=== PATIENT | male | born 2000 | race Caucasian/White ===

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

== ENCOUNTER → 2019-01-09 | Outpatient (REF) | payer OTHER | LOC: M SFHCLERA 14:21 | PROVIDERS: ATTEND Nurse Practitioner Family | DX: J02.9 Acute pharyngitis, unspecified (principal) ==

== ENCOUNTER → 2019-04-24 | Outpatient (CLI) | payer OTHER ==
[2019-04-24 11:40] LABS: HEMATOCRIT 54.2 % (42.0-52.0); HEMOGLOBIN 19.1 g/dl (13.5-17.5); MEAN CORPUSCULAR HEMOGLOBIN 30.8 pg (27.0-33.0); MEAN CORPUSCULAR HGB CONC 35.2 g/dl (32.0-36.5); MEAN CORPUSCULAR VOLUME 87.3 fl (80.0-96.0); PLATELET COUNT, AUTOMATED 283 10^3/uL (150-450); RED BLOOD COUNT 6.21 10^6/uL (4.30-6.10); WHITE BLOOD COUNT 5.1 10^3/uL (4.0-10.0)
[2019-04-24 12:10] LABS: HEMOGLOBIN A1c 10.6 %
[2019-04-24 12:30] LABS: ALBUMIN 4.7 GM/DL (3.2-5.2); ALT/SGPT 28 U/L (12-78); BILIRUBIN,TOTAL 0.9 MG/DL (0.2-1.0); BLOOD UREA NITROGEN 14 MG/DL (7-18); CALCIUM LEVEL 9.8 MG/DL (8.5-10.1); CARBON DIOXIDE LEVEL 33 MEQ/L (21-32); CHLORIDE LEVEL 101 MEQ/L (98-107); CHOLESTEROL LEVEL 217 MG/DL (<200); CHOLESTEROL RISK RATIO 2.782 (<5); CREATININE FOR GFR 0.91 MG/DL (0.70-1.30); GLUCOSE, FASTING 142 MG/DL (70-100); HDL CHOLESTEROL 78 MG/DL (>40); LDL CHOLESTEROL 119 MG/DL (<100); NON-HDL-C 139 MG/DL; POTASSIUM SERUM 4.2 MEQ/L (3.5-5.1); SODIUM LEVEL 140 MEQ/L (136-145); TOTAL 25(OH) VITAMIN D 16.9 NG/ML (30.0-100.0); TOTAL PROTEIN 8.3 GM/DL (6.4-8.2); TRIGLYCERIDES LEVEL 98 MG/DL (<150)
== END ==
LOC: M LAB 10:49
PROVIDERS: ATTEND Family Medicine
DX: D64.9 Anemia, unspecified (principal); E03.9 Hypothyroidism, unspecified; R53.83 Other fatigue

== ENCOUNTER → 2019-10-02 | Outpatient (REF) | payer OTHER ==
[2019-10-02 16:18] LABS: CREATININE, URINE 95.9 MG/DL; MAU/CREAT RATIO 224.1 MCG/MG (0.0-30.0)
== END ==
LOC: M LAB REF 15:04
PROVIDERS: ATTEND Nurse Practitioner Family
DX: E10.65 Type 1 diabetes mellitus with hyperglycemia (principal)

== ENCOUNTER 2020-11-02 16:23 | Emergency (ER) | payer OTHER ==
[~2020-11-02] VITALS: Ht 170.2 cm; Wt 63.2 kg
[~2020-11-02 16:23] MED LIST changes: -ACETAMINOPHEN TAB 650MG DOSE (2X325MG) PO ONE; -ADME100I; -ALBUTEROL 90 MCG/ACT 8GM HFA INHALER INH PRN; -ALBUTEROL SULFATE 2.5 MG/0.5 ML INH NEB SOLN INH PRN; -BASA100I; -CASIRIVIMAB/IMDEVIMAB 1,200 MG in NS 250 ML IV ONE; -EPINEPHrine INJ 1 MG/ML 1ML AMP IM PRN; -NS 1,000 ML IV SCH; -diphenhydrAMINE 25MG CAP PO ONE; -diphenhydrAMINE 50MG/ML VIAL (J1200) IV PRN; -methylPREDNISolone 125MG 2ML VIAL IV PRN
[2020-11-02] MEDS ORDERED: BASA100I (17:42)
[2020-11-02] MEDS ORDERED: ADME100I (17:42)
[2020-11-02] MEDS ORDERED: NS 1,000 ML IV ONE (18:10)
[2020-11-02 19:42] LABS: VENOUS BASE EXCESS -1.3 (-2.0-2.0); VENOUS HCO3 25.6 MEQ/L (23.0-27.0); VENOUS PARTIAL PRESSURE CO2 50.3 mmHg (38.0-50.0); VENOUS PARTIAL PRESSURE O2 37.8 mmHg (30.0-50.0); VENOUS PH 7.325 UNITS (7.330-7.430); VENOUS STANDARD HCO3 22.6 MEQ/L; VENOUS TOTAL CO2 27.2 MEQ/L (24.0-28.0)
[2020-11-02 19:46] LABS: BASO % 0.4 % (0.0-1.0); HEMATOCRIT 52.7 % (42.0-52.0); HEMOGLOBIN 18.5 g/dl (13.5-17.5); LYMPH # 0.7 10^3/uL (1.5-5.0); LYMPH % 12.3 % (24.0-44.0); MEAN CORPUSCULAR HEMOGLOBIN 30.5 pg (27.0-33.0); MEAN CORPUSCULAR HGB CONC 35.1 g/dl (32.0-36.5); MEAN CORPUSCULAR VOLUME 86.8 fl (80.0-96.0); MONO % 17.4 % (2.0-8.0); NEUTROPHILS # 3.9 10^3/uL (1.5-8.5); NEUTROPHILS % 69.7 % (36.0-66.0); PLATELET COUNT, AUTOMATED 238 10^3/uL (150-450); RED BLOOD COUNT 6.07 10^6/uL (4.30-6.10); WHITE BLOOD COUNT 5.5 10^3/uL (4.0-10.0)
--- NOTE | 2020-11-02 20:03 | ECGEPIP ---
[facility] - ED Test Date: 2020-11-02 Pat Name: ADELE RODRIGUEZ Department: Room: - Gender: Male [employer]: art : 2000 Requested By: TRACEY Mtz PA-C Order Number: [id number] Reading MD: Keira Galarza Measurements Intervals [place] Rate: 78 P: 68 NC: 128 QRS: 65 QRSD: 84 T: 33 QT: 360 QTc: 410 Interpretive Statements Normal sinus rhythm Possible Left atrial enlargement decreased rate 02/15/16 Electronically Signed on 11-02-2020 20:02:55 EDT by Keira Galarza
[2020-11-02 20:12] LABS: HEMOGLOBIN A1c 8.7 %
[2020-11-02 20:17] LABS: ACETONE/KETONE 3.96 MG/DL (<2.81); ALBUMIN 4.5 GM/DL (3.2-5.2); BILIRUBIN,DIRECT 0.1 MG/DL (0.0-0.2); BILIRUBIN,TOTAL 0.7 MG/DL (0.2-1.0); TOTAL PROTEIN 8.1 GM/DL (6.4-8.2)
[2020-11-02] MEDS ORDERED: NS 500 ML IV ONE (20:45)
--- NOTE | 2020-11-02 21:48 | REPVR ---
PROCEDURE INFORMATION: Exam: XR Chest Exam date and time: 11/02/2020 8:19 PM Age: 20 years old Clinical indication: Other: Chest pain; Additional info: Covid TECHNIQUE: Imaging protocol: XR of the chest. Views: 1 view. COMPARISON: CT ABD PELVIS WITH CONTRAST 10/08/2014 11:24 PM FINDINGS: Lungs: Vague focus of increased opacity demonstrated in the lateral aspect of the left mid lung zone. Findings may represent an early focus of pneumonitis versus artifact related to the anterior 4th rib. Remaining lungs are clear. Pleural spaces: Unremarkable. No pleural effusion. No pneumothorax. Heart/Mediastinum: Unremarkable. No cardiomegaly. Bones/joints: Unremarkable. IMPRESSION: Vague focus of increased opacity demonstrated in the lateral aspect of the left mid lung zone. Findings may represent an early focus of pneumonitis versus artifact. Electronically signed by: Davon Cobb On 11/02/2020 21:48:24 PM
[2020-11-03 01:02] VITALS: BP 117/55
--- NOTE | 2020-11-04 08:00 | ED PDOC ---
Post-Departure Follow-Up cxr-p faxed to dr harvinder francou Valentin Harrell MD Nov 04, 2020 08:00
== END 2020-11-03 01:39 | disposition home or self-care (01) ==
LOC: M ED 16:23 → M ED INP 16:24 → UNDOADMOB 16:24 → M ICU 11-03 01:35 → M ED INP 11-03 01:35
DX: E10.649 Type 1 diabetes mellitus with hypoglycemia without coma (principal); U07.1 COVID-19

== ENCOUNTER → 2020-11-02 | Outpatient (CLI) | payer OTHER ==
[~2020-11-02] MED LIST changes: +ACETAMINOPHEN TAB 650MG DOSE (2X325MG) PO ONE; +ADME100I; +ALBUTEROL 90 MCG/ACT 8GM HFA INHALER INH PRN; +ALBUTEROL SULFATE 2.5 MG/0.5 ML INH NEB SOLN INH PRN; +BASA100I; +CASIRIVIMAB/IMDEVIMAB 1,200 MG in NS 250 ML IV ONE; +EPINEPHrine INJ 1 MG/ML 1ML AMP IM PRN; +NS 1,000 ML IV SCH; +diphenhydrAMINE 25MG CAP PO ONE; +diphenhydrAMINE 50MG/ML VIAL (J1200) IV PRN; +methylPREDNISolone 125MG 2ML VIAL IV PRN
--- NOTE | 2020-11-02 23:40 | IPNPDOC ---
Text Note Date of Service The patient was seen on 11/02/20. NOTE Outpatient transfusion for COVID+ patient encounter 20M with a PMHx of Type 1 diabetes, he admits to not following a good diet and eats what he wants. Sugars initially elevated but improved with insulin in the ED. He was discharged from the ED and I was asked to see the patient for OP monoclonal antibody administration. Patient is COVID19+ will be receiving Monocolonal antibodies infusion therapy per hospital infusion policy. Patient has been feeling tired at home with a headache some cough and muscle aches for 1 day which prompted him to come to the ER for visit. Patient does not meet criteria to be admitted to the hospital. Patient is saturating well on room air and does not dipped below 92% on ambulation. Patient will receive the infusion and then be discharged to home with OP followup. On exam patient was resting comfortably lungs were clear to auscultation bilaterally with no crackles or wheezing. Regular heart rate. Patient was calm awake and answering all questions appropriately. Is able to speak in full sentences without appearing short of breath. Abdomen was soft and nontender with positive bowel sounds. Dad was with him at bedside, I counseled them both to get vaccinated. Consent was obtained with patient and signed in the chart. Patient advised to r eturn to hospital should his symptoms worsen. SERENE ORDOÑEZ MD Nov 02, 2020 23:40
[2020-11-03] VITALS (7 sets, daily range): BP systolic 110–115; BP diastolic 56–59
== END ==
LOC: M OPCLI4 23:37
PROVIDERS: ATTEND Family Medicine
DX: U07.1 COVID-19 (principal)

== ENCOUNTER → 2021-09-03 | Outpatient (REF) | payer OTHER ==
[~2021-09-03] MED LIST changes: +ADME100I; +BASA100I
[2021-09-03 19:01] LABS: CREATININE, URINE 48.7 MG/DL; MALB URINE SIEMENS 5.7 MG/L; MAU/CREAT RATIO 11.7 MCG/MG (0.0-30.0)
== END ==
LOC: M LAB REF 16:46
PROVIDERS: ATTEND Nurse Practitioner Family
DX: E10.65 Type 1 diabetes mellitus with hyperglycemia (principal)

== ENCOUNTER 2022-02-15 18:56 | Inpatient (IN) | payer OTHER ==
[~2022-02-15] VITALS: Ht 170.2 cm; Wt 60.0 kg
[2022-02-15] MEDS ORDERED: NS 1,780 ML in IV 1 EA IV ONE (20:15)
[2022-02-15] MEDS ORDERED: ONDANSETRON 4MG 2ML VIAL IV ONE (20:15)
[2022-02-15 20:43] LABS: VENOUS BASE EXCESS -10.5 (-2.0-2.0); VENOUS O2 SATURATION 83.4 % (60.0-80.0); VENOUS PARTIAL PRESSURE O2 50.6 mmHg (30.0-50.0); VENOUS PH 7.243 UNITS (7.330-7.430); VENOUS STANDARD HCO3 16.2 MEQ/L; VENOUS TOTAL CO2 17.2 MEQ/L (24.0-28.0)
[2022-02-15 20:49] LABS: BASO % 0.1 % (0.0-1.0); HEMATOCRIT 50.8 % (42.0-52.0); HEMOGLOBIN 17.4 g/dl (13.5-17.5); LYMPH # 0.6 10^3/uL (1.5-5.0); LYMPH % 3.5 % (24.0-44.0); MEAN CORPUSCULAR HEMOGLOBIN 29.8 pg (27.0-33.0); MEAN CORPUSCULAR HGB CONC 34.3 g/dl (32.0-36.5); MEAN CORPUSCULAR VOLUME 87.1 fl (80.0-96.0); MONO # 0.8 10^3/uL (0.0-0.8); MONO % 5.2 % (2.0-8.0); NEUTROPHILS # 14.3 10^3/uL (1.5-8.5); NEUTROPHILS % 90.8 % (36.0-66.0); PLATELET COUNT, AUTOMATED 298 10^3/uL (150-450); RED BLOOD COUNT 5.83 10^6/uL (4.30-6.10); WHITE BLOOD COUNT 15.7 10^3/uL (4.0-10.0)
[2022-02-15 21:00] LABS: HEMOGLOBIN A1c 8.2 % (4.0-6.0)
[2022-02-15 21:11] LABS: OSMOLALITY SERUM 331 MOSM/KG (275-295)
[2022-02-15 21:18] LABS: ALT/SGPT 30 U/L (7.0-40); BILIRUBIN,DIRECT 0.4 MG/DL (<0.4); BILIRUBIN,TOTAL 1.1 MG/DL (0.3-1.2); BLOOD UREA NITROGEN 29 MG/DL (9-23); CALCIUM LEVEL 10.3 MG/DL (8.5-10.1); CARBON DIOXIDE LEVEL 15 MMOL/L (20-31); CHLORIDE LEVEL 93 MMOL/L (98-107); CREATININE FOR GFR 1.12 MG/DL (0.70-1.30); GLOMERULAR FILTRATION RATE > 60.0 (>60); GLUCOSE, FASTING 628 MG/DL (60-100); LIPASE 24 U/L (12-53); MAGNESIUM LEVEL 2.2 MG/DL (1.8-2.4); SODIUM LEVEL 135 MMOL/L (136-145); TOTAL PROTEIN 7.7 G/DL
[2022-02-15] MEDS ORDERED: HumuLIN R (REGULAR) INSULIN (NovoLIN R) **100U/ML** PER UNIT IV ONE (21:30)
[2022-02-15] MEDS ORDERED: INSULIN IV RATE CHANGE DOCUMENTATION ML/HR XX SCH (21:30)
[2022-02-15] MEDS ORDERED: INSULIN REGULAR IN 0.9 % NACL 100 UNIT in IV 1 EA IV SCH ×2 (21:30)
[2022-02-15 21:32] LABS: ACETONE/KETONE > 46.00 MG/DL (<2.81)
[2022-02-15] MEDS ORDERED: BASA100I SC (23:45)
[2022-02-15] MEDS ORDERED: VITA-172 PO (23:45)
[2022-02-15] MEDS ORDERED: HOME MED LIST COMPLETE! XX SCH (23:45)
[2022-02-15] MEDS ORDERED: ADME100I SC (23:45)
[2022-02-16] MEDS ORDERED: INSULIN IV RATE CHANGE DOCUMENTATION ML/HR XX SCH (01:30)
[2022-02-16] MEDS ORDERED: NS 1,000 ML IV SCH (01:30)
[2022-02-16] MEDS ORDERED: INSULIN REGULAR IN 0.9 % NACL 100 UNIT in IV 1 EA IV SCH ×2 (02:00)
[2022-02-16 02:45] VITALS: BP 115/54
[2022-02-16] MEDS ORDERED: NS 0.45% 1,000 ML IV SCH (03:20)
[2022-02-16] MEDS ORDERED: D5W/0.45% SODIUM CHLORIDE 1,000 ML IV SCH (03:30)
[2022-02-16 04:40] LABS: BLOOD UREA NITROGEN 19 MG/DL (9-23); CALCIUM LEVEL 8.7 MG/DL (8.5-10.1); CARBON DIOXIDE LEVEL 22 MMOL/L (20-31); CHLORIDE LEVEL 107 MMOL/L (98-107); CREATININE FOR GFR 0.89 MG/DL (0.70-1.30); GLOMERULAR FILTRATION RATE > 60.0 (>60); GLUCOSE, FASTING 208 MG/DL (60-100); POTASSIUM SERUM 3.6 MMOL/L (3.5-5.1); SODIUM LEVEL 141 MMOL/L (136-145)
[2022-02-16] MEDS ORDERED: DEXTROSE 50% 50 ML SYRINGE IV PRN (05:00)
[2022-02-16] MEDS ORDERED: GLUCAGON INJ 1MG VIAL SC PRN (05:00)
[2022-02-16] MEDS ORDERED: GLUCOSE 4GM CHEW TABLET PO PRN (05:00)
[2022-02-16] MEDS ORDERED: HEPARIN SOD (PORCINE) 5000UNITS/ML 1ML VIAL/SYRINGE SC SCH (06:00)
[2022-02-16] MEDS ORDERED: LEVEMIR (INSULIN DETEMIR) 1 UNITS/0.01ML SC SCH ×2 (06:00→21:00)
[2022-02-16 07:04] LABS: BLOOD UREA NITROGEN 17 MG/DL (9-23); CALCIUM LEVEL 8.5 MG/DL (8.5-10.1); CARBON DIOXIDE LEVEL 23 MMOL/L (20-31); CHLORIDE LEVEL 107 MMOL/L (98-107); CREATININE FOR GFR 0.83 MG/DL (0.70-1.30); GLOMERULAR FILTRATION RATE > 60.0 (>60); GLUCOSE, FASTING 270 MG/DL (60-100); PHOSPHORUS LEVEL 3.3 MG/DL (2.5-4.9); POTASSIUM SERUM 3.6 MMOL/L (3.5-5.1); SODIUM LEVEL 140 MMOL/L (136-145)
[2022-02-16 08:00] VITALS: BP 105/54
[2022-02-16] MEDS: INSULIN LISPRO (NovoLOG) PER UNIT SC SCH ×4 (08:43→17:33)
[2022-02-16] MEDS ORDERED: INSULIN LISPRO (NovoLOG) PER UNIT SC ONE (09:20)
[2022-02-16 10:40] LABS: BLOOD UREA NITROGEN 23 MG/DL (9-23); CALCIUM LEVEL 8.5 MG/DL (8.5-10.1); CARBON DIOXIDE LEVEL 23 MMOL/L (20-31); CHLORIDE LEVEL 106 MMOL/L (98-107); CREATININE FOR GFR 0.85 MG/DL (0.70-1.30); GLOMERULAR FILTRATION RATE > 60.0 (>60); GLUCOSE, FASTING 314 MG/DL (60-100); POTASSIUM SERUM 3.7 MMOL/L (3.5-5.1); SODIUM LEVEL 139 MMOL/L (136-145)
[2022-02-16] MEDS ORDERED: INSULIN LISPRO (NovoLOG) PER UNIT SC SCH ×2 (11:55→21:00)
[2022-02-16] MEDS ORDERED: POTASSIUM CHLORIDE 10MEQ SR TABLET PO ONE (12:45)
[2022-02-16 14:50] LABS: BLOOD UREA NITROGEN 23 MG/DL (9-23); CALCIUM LEVEL 8.8 MG/DL (8.5-10.1); CARBON DIOXIDE LEVEL 27 MMOL/L (20-31); CHLORIDE LEVEL 106 MMOL/L (98-107); CREATININE FOR GFR 0.78 MG/DL (0.70-1.30); GLOMERULAR FILTRATION RATE > 60.0 (>60); GLUCOSE, FASTING 180 MG/DL (60-100); PHOSPHORUS LEVEL 3.2 MG/DL (2.5-4.9); POTASSIUM SERUM 3.7 MMOL/L (3.5-5.1); SODIUM LEVEL 142 MMOL/L (136-145)
[2022-02-16 15:05] VITALS: BP 106/58
[2022-02-16 21:00] VITALS: BP 108/57
[2022-02-16] MEDS ORDERED: ENOXAPARIN 40MG/0.4ML SYRINGE (J1650 PER 10MG) SC SCH (21:00)
[2022-02-17 05:38] LABS: HEMATOCRIT 43.7 % (42.0-52.0); MEAN CORPUSCULAR HEMOGLOBIN 30.2 pg (27.0-33.0); MEAN CORPUSCULAR HGB CONC 34.8 g/dl (32.0-36.5); MEAN CORPUSCULAR VOLUME 86.9 fl (80.0-96.0); PLATELET COUNT, AUTOMATED 203 10^3/uL (150-450); RED BLOOD COUNT 5.03 10^6/uL (4.30-6.10); WHITE BLOOD COUNT 9.4 10^3/uL (4.0-10.0)
[2022-02-17 05:47] LABS: HEMOGLOBIN 15.2 g/dl (13.5-17.5)
[2022-02-17 06:00] VITALS: BP 109/72
[2022-02-17 07:07] LABS: BLOOD UREA NITROGEN 17 MG/DL (9-23); CALCIUM LEVEL 9.1 MG/DL (8.5-10.1); CARBON DIOXIDE LEVEL 26 MMOL/L (20-31); CHLORIDE LEVEL 107 MMOL/L (98-107); CREATININE FOR GFR 0.75 MG/DL (0.70-1.30); GLOMERULAR FILTRATION RATE > 60.0 (>60); GLUCOSE, FASTING 73 MG/DL (60-100); POTASSIUM SERUM 3.9 MMOL/L (3.5-5.1); SODIUM LEVEL 141 MMOL/L (136-145)
[2022-02-17] MEDS: INSULIN LISPRO (NovoLOG) PER UNIT SC SCH ×3 (07:30→13:13)
[2022-02-17] MEDS ORDERED: BASA100I SC (14:14)
== END 2022-02-17 15:06 | disposition home or self-care (01) | DRG 420 ==
LOC: M ED 18:56 → M ED INP 02-16 01:29 → ENRESERV 02-16 01:46 → M ICU 02-16 02:47 → M MSPAV 02-16 15:02
PROVIDERS: ADMIT Internal Medicine Pulmonary Disease; ATTEND Internal Medicine
DX: E10.10 Type 1 diabetes mellitus with ketoacidosis without coma (principal); N17.9 Acute kidney failure, unspecified; B97.89 Other viral agents as the cause of diseases classified elsewhere; R09.81 Nasal congestion

== ENCOUNTER → 2022-11-22 | Outpatient (REF) | payer OTHER ==
[~2022-11-22] MED LIST changes: +ADME100I SC; +AMOX600S51 PO; -AUGMSUS PO; +BASA100I SC; +VITA-172 PO
[2022-11-22 12:35] LABS: HEMATOCRIT 51.6 % (42.0-52.0); HEMOGLOBIN 17.7 g/dl (13.5-17.5); MEAN CORPUSCULAR HEMOGLOBIN 29.8 pg (27.0-33.0); MEAN CORPUSCULAR HGB CONC 34.3 g/dl (32.0-36.5); PLATELET COUNT, AUTOMATED 268 10^3/uL (150-450); RED BLOOD COUNT 5.93 10^6/uL (4.30-6.10); WHITE BLOOD COUNT 4.1 10^3/uL (4.0-10.0)
[2022-11-22 13:04] LABS: HEMOGLOBIN A1c 7.8 % (4.0-6.0)
[2022-11-22 13:06] LABS: ALBUMIN 3.9 G/DL (3.2-5.2); ALKALINE PHOSPHATASE 100 U/L (46-116); ALT/SGPT 29 U/L (7.0-40); AST/SGOT 18 U/L (<34); BLOOD UREA NITROGEN 15 MG/DL (9-23); CALCIUM LEVEL 9.1 MG/DL (8.5-10.1); CARBON DIOXIDE LEVEL 31 MMOL/L (20-31); CHLORIDE LEVEL 102 MMOL/L (98-107); CHOLESTEROL LEVEL 145 MG/DL (<200); CHOLESTEROL RISK RATIO 2.22 (<5); GLOMERULAR FILTRATION RATE > 60.0 (>60); GLUCOSE, FASTING 233 MG/DL (60-100); HDL CHOLESTEROL 65.1 MG/DL (>40); LDL CHOLESTEROL 63.7 MG/DL (<100); NON-HDL-C 79.9 MG/DL; POTASSIUM SERUM 4.9 MMOL/L (3.5-5.1); SODIUM LEVEL 137 MMOL/L (136-145); TOTAL PROTEIN 6.9 G/DL (5.7-8.2); TRIGLYCERIDES LEVEL 81 MG/DL (<150)
== END ==
LOC: M SFHCCLAY 08:15
PROVIDERS: ATTEND Nurse Practitioner Family
DX: Z00.00 Encounter for general adult medical examination without abnormal findings (principal); E10.9 Type 1 diabetes mellitus without complications

== ENCOUNTER → 2023-11-24 | Outpatient (REF) | payer OTHER ==
[2023-11-24 11:51] LABS: ALBUMIN 4.2 G/DL (3.2-5.2); ALKALINE PHOSPHATASE 101 U/L (46-116); ALT/SGPT 31 U/L (7.0-40); AST/SGOT 21 U/L (<34); BILIRUBIN,TOTAL 1.3 MG/DL (0.3-1.2); BLOOD UREA NITROGEN 14 MG/DL (9-23); CALCIUM LEVEL 9.9 MG/DL (8.5-10.1); CARBON DIOXIDE LEVEL 32 MMOL/L (20-31); CHLORIDE LEVEL 102 MMOL/L (98-107); CHOLESTEROL LEVEL 182 MG/DL (<200); CHOLESTEROL RISK RATIO 2.44 (<5); CREATININE FOR GFR 0.88 MG/DL (0.70-1.30); GLOMERULAR FILTRATION RATE > 60.0 (>60); GLUCOSE, FASTING 91 MG/DL (60-100); HDL CHOLESTEROL 74.3 MG/DL (>40); LDL CHOLESTEROL 95.1 MG/DL (<100); NON-HDL-C 107.7 MG/DL; POTASSIUM SERUM 4.3 MMOL/L (3.5-5.1); SODIUM LEVEL 137 MMOL/L (136-145); TOTAL PROTEIN 7.5 G/DL (5.7-8.2); TRIGLYCERIDES LEVEL 63 MG/DL (<150)
== END ==
LOC: M SFHCCLAY 08:13
PROVIDERS: ATTEND Nurse Practitioner Family
DX: Z00.00 Encounter for general adult medical examination without abnormal findings (principal); E10.9 Type 1 diabetes mellitus without complications